=== PATIENT | male | born 1945 ===

== ENCOUNTER → 2018-04-10 | Outpatient (CLI) | payer MEDICARE, OTHER | LOC: LAB SHORT 15:10 → LAB 15:10 | DX: L08.9 Local infection of the skin and subcutaneous tissue, unspecified (principal); C44.619 Basal cell carcinoma of skin of left upper limb, including shoulder; D22.72 Melanocytic nevi of left lower limb, including hip; L81.4 Other melanin hyperpigmentation | CPT/HCPCS: 87070; 87205 ==